=== PATIENT | female | born 1985 | race Asian ===

== ENCOUNTER 2018-02-18 02:35 | Emergency (ER) | payer BC ==
[~2018-02-18] VITALS: Ht 162 cm; Wt 64.0 kg
[2018-02-18 02:39] VITALS: BP 108/58; TEMP 95.9
[2018-02-18 03:38] VITALS: PULSE 83
== END 2018-02-18 03:39 | disposition home or self-care (01) ==
LOC: COL.ER 02:35
DX: S06.0X0A Concussion without loss of consciousness, initial encounter (principal); W06.XXXA Fall from bed, initial encounter; W22.8XXA Striking against or struck by other objects, initial encounter

== ENCOUNTER 2023-01-04 08:53 | Emergency (ER) | payer SELFPAY ==
[~2023-01-04] VITALS: Ht 165.1 cm; Wt 76.8 kg
[2023-01-04 08:54] VITALS: TEMP 98
[2023-01-04 09:30] VITALS: BP 117/80; PULSE 92
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
--- NOTE | 2023-01-04 11:17 | NUR ---
Monitors off pt [id number] for bedside ultrasound.
--- NOTE | 2023-01-04 11:19 | NUR ---
Monitors off at 1053, pt to CT.
--- NOTE | 2023-01-04 12:30 | NUR ---
FHR tracing intermittently due to FM. FHR and FM audible throughout room. This nurse at pt bedside palpating pt abd, with pt consent and explanation, attempting to readjust external FHR monitor.
--- NOTE | 2023-01-04 13:06 | NUR ---
FHR tracing intermittently due to FM. FHR and FM audible throughout the room. This nurse at pt bedside palpating pt abd, with pt consent and explanation, attempting to readjust external FHR monitor. Pt off monitor at 1305 after charge nurse Fina Morales RN notified Dr. Luna, via phonecall, of pt progress and can DC home per Dr. Altamirano instructions. Pt ER nurse MARION Dhillon notified, via face to face, of pt POC and Dr. Altamirano orders for pt DC. Pt and pt spouse notified of POC. Questions, concerns, and needs encouraged. Pt verbalized understanding and agreement of POC with "no" questions, concerns, or needs.
[2023-01-04 13:30] VITALS: BP 112/72; PULSE 84
== END 2023-01-04 13:56 | disposition home or self-care (01) ==
LOC: COL.ER 08:53
DX: O9A.212 Injury, poisoning and certain other consequences of external causes complicating pregnancy, second trimester (principal); S60.031A Contusion of right middle finger without damage to nail, initial encounter; S50.811A Abrasion of right forearm, initial encounter; M54.2 Cervicalgia; Z28.310 Unvaccinated for COVID-19; Z3A.27 27 weeks gestation of pregnancy; V89.2XXA Person injured in unspecified motor-vehicle accident, traffic, initial encounter; Y92.410 Unspecified street and highway as the place of occurrence of the external cause

== ENCOUNTER → 2023-01-19 | Outpatient (CLI) | payer BC | LOC: COL.RAD 14:46 | DX: E04.2 Nontoxic multinodular goiter (principal) ==